=== PATIENT | female | born 1965 | race African-American/Black ===

== ENCOUNTER 2016-10-09 00:54 | Inpatient (IN) | payer OTHER ==
[~2016-10-09] VITALS: Ht 160 cm; Wt 69.4 kg
[~2016-10-09 00:54] MED LIST: AMLODIPINE BESY10 M1 PO; BACLOFEN10 M1 PO; MOBIC7.5 M1 PO; OMEPRAZOLE20 M2 PO; PATADAY2.5 ML OPH; PREMARIN0.3 M1 PO; PROPRANOLOL HCL40 M1 PO; SEROQUEL400 M1 PO; TRAMADOL HCL50 M1 PO; WELLBUTRIN XL300 M2 PO
--- NOTE | 2016-10-09 10:25 | Admission Core Measures ---
Admission Meds I reviewed the following Meds: Current Medications Sig/Jimbo Start time Last Medication Dose Stop Time Status Admin Acetaminophen 975 MG ONCE 10/09 0000 NR (Tylenol) 10/09 2358 Amlodipine Besylate 10 MG DAILY 10/09 1000 AC (Norvasc) Bupropion HCl 300 MG DAILY 10/09 1000 AC (Wellbutrin XL) Estrogens Conjugated 0.3 MG DAILY 10/09 1000 AC (Premarin) Naphazoline HCl/ 1 GTT 4 TIMES/DAY 10/09 1000 AC Pheniramine Maleate (Visine-A) Omeprazole 20 MG DAILY 10/09 1000 AC (Prilosec) Oxycodone HCl 10 MG ONCE 10/09 0000 NR (Roxicodone) 10/09 2358 Propranolol HCl 40 MG DAILY 10/09 999 AC (Inderal 40 MG Tablet) Quetiapine Fumarate 200 MG BID 10/09 2199 AC (Seroquel) Vancomycin HCl 1,000 MG ONCE 10/09 0000 NR Sodium Chloride 250 ML 10/09 2358 (Normal Saline 0.9%) Acute Coronary Syndrome Inclusion Criteria ACS Diagnosis No Inpatient Core Measures LDL Reminder: If No, please order W/I first 24hr of stay Congestive Heart Failure Inclusion Criteria CHF Diagnosis No Cerebrovascular accident Inclusion Criteria CVA/TIA Diagnosis No Inpatient Core Measures Bedside Swallow Eval Reminder: If BSE failed, place ST order Antithrombotic Reminder: Order Antithrombotic Medication by end of day 2 Antithrombotic Reminder: Document Reason Antithrombotic Not ordered by end of day 2 AFIB/Flutter Reminder: If Present, add to problem list AFIB/Flutter Reminder: Order Anticoag Medication for pts with AFIB/Flutter Atherosclerosis Reminder: If Present, add to problem list LDL Reminder: If No, please order W/I first 24hr of stay PT Order Reminder: If No, please order Venous thromboembolism Inpatient Core Measures VTE Risk Factors: Age > 40, Surgery No [facility] VTE prophylaxis d/t No contraindications No VTE Pharm Prophylaxis d/t No contraindications Inclusion Criteria - Per Current guidelines, there needs to be overlap - treatment for the first 5 days of Warfarin therapy. - Parenteral Anticoagulation (IV or SC) needs to be - given along with Warfarin therapy. VTE Diagnosis No VTE Type NONE VTE Confirmed by (Test) NONE Problem List As ranked by this Provider includes Assessment & Plan 1. Unilateral primary osteoarthritis, left hip HOME MEDS Home Med List Amlodipine Besylate 10 MG TABLET 1 TAB PO DAILY HTN (Reported) Baclofen 10 MG TABLET 1 TAB PO DAILY PAIN (Reported) Bupropion HCl (Wellbutrin XL) 300 MG TAB.ER.24H 1 TAB PO DAILY MENTAL HEALTH (Reported) Estrogens, Conjugated (Premarin) 0.3 MG TABLET 1 TAB PO DAILY POST MENOPAUSAL (Reported) Meloxicam (Mobic) 7.5 MG TABLET 1 TAB PO DAILY PAIN (Reported) Olopatadine HCl (Pataday) 0.2 % DROPS 1 GTT OPH DAILY EYES (Reported) Omeprazole 20 MG CAPSULE.DR 1 CAP PO DAILY GERD (Reported) Propranolol HCl 40 MG TABLET 1 TAB PO DAILY MENTAL HEALTH (Reported) Quetiapine Fumarate (Seroquel) 400 MG TABLET 1 TAB PO QPM MENTAL HEALTH ( Reported) Tramadol HCl 50 MG TABLET 1 TAB PO BIDP PAIN (Reported)
[2016-10-09] MEDS ORDERED: COLACE100 M1 PO (10:28)
[2016-10-09] MEDS ORDERED: MS CONTIN15 M2 PO (10:28)
[2016-10-09] MEDS ORDERED: DILAUDID2 M1 PO (10:28)
[2016-10-09] MEDS ORDERED: MIRALAX17 G1 PO (10:28)
[2016-10-09] MEDS ORDERED: ASPIRIN EC325 M2 PO (10:28)
--- NOTE | 2016-10-09 10:31 | Patient Discharge Instructions ---
Discharge Instructions General Discharge Information You were seen/treated for: Left hip pain related to unilateral primary osteoarthrtis You had these procedures: Left total hip replacement Watch for these problems: Increasing pain despite the use of pain medication Increasing redness, warmth or swelling Drainage of any type from incision Inability to bear weight on operative leg Persistent nausea and vomiting Fever greater than 101.5 degrees Do not soak the wound: Yes No bath, but you may shower: Yes Other wound care: Please keep wound clean and dry. No ointments or lotions of any type on or near incision at any time. No exceptions. Your dressing will be changed by your nurse on the second day after your surgery. Daily dry dressing changes are recommended each day thereafter. Do not soak your wound in a bath at any time until otherwise indicated by your surgeon. You may shower, please dry wound immediately after shower with a clean towel. Special Instructions: Eliquis: You are taking this medication for 3 weeks postoperatively to prevent formation of blood clots. Please take as directed. Constipation: Pain medication can cause constipation. Dr. Ramon has recommended that you take Colace and miralax each day. You may discontinue this medication if you develop loose stool or diarrhea. If you wish to continue this medication, it is available over the counter. If you are unable to move your bowels after several days, if you are unable to pass gas and are developing bloating, nausea, or vomiting as a result, please contact your doctor. Diet Continue normal diet: Yes Recommended Diet: Regular Activity Full Activity/No Limits: No Activity Self Limited: Yes Pounds, do NOT lift more than: 10 Activity Limited to: Weight bear as tolerated Acute Coronary Syndrome Inclusion Criteria At DC or during hospital stay patient has or had the following: ACS DIAGNOSIS No Discharge Core Measures Meds if any: Prescribed or Continued at Discharge Meds if any: NOT Prescribed or Continued at Discharge Congestive Heart Failure Inclusion Criteria At DC or during hospital stay patient has or had the following: CHF DIAGNOSIS No Discharge Core Measures Meds if any: Prescribed or Continued at Discharge Meds if any: NOT Prescribed or Continued at Discharge Cerebrovascular accident Inclusion Criteria At DC or during hospital stay patient has or had the following: CVA/TIA Diagnosis No Discharge Core Measures Meds if any: Prescribed or Continued at Discharge Meds if any: NOT Prescribed or Continued at Discharge Venous thromboembolism Inclusion Criteria VTE Diagnosis No VTE Type NONE VTE Confirmed by (Test) NONE Discharge Core Measures - Per Current guidelines, there needs to be overlap - treatment for the first 5 days of Warfarin therapy. - If discharged on Warfarin prior to 5 days of - overlap therapy, the patient will need to be - assessed for post discharge needs including - *Post discharge parental anticoagulation - *Warfarin and/or parental anticoagulation education - *Follow up date to check INR post discharge At least 5 days overlap therapy as Inpatient No Meds if any: Prescribed or Continued at Discharge Note: Overlap Therapy is Warfarin and Anticoagulant Meds if any: NOT Prescribed or Continued at Discharge
--- NOTE | 2016-10-09 10:33 | Surgical Discharge Summary ---
Visit Information Visit Dates Admission Date: 10/09/16 Discharge Date: 10/11/16 History of Present Illness Chief Complaint: Left hip pain related to unilateral primary osteoarthritis Surgical History Pertinent Surgical History: non-contributory Review of Systems: See H&P Hospital Course Course Attending Physician: KAMARI HILARIO MD Primary Care Physician: AMANDA UBRCH,[facility] Course: Patient was admitted to the hospital for an elective total joint replacement. The procedure was tolerated well and patient was transferred to a general surgical floor. Diet was advanced and tolerated, and the patient voided spontaneously. The patient was evaluated and treated by physical therapy. At the time of hospital discharge, the vital signs were stable, neurovascular status was intact, and pain was controlled with the use of oral pain medications. Allergies: Coded Allergies: Penicillins (Severe, SWELLING 10/09/16) ibuprofen (Severe, SWELLING 10/09/16) Disposition Summary Disposition Principal Diagnosis: Left hip unilateral primary osteoarthritis Additional Diagnosis: None Discharge Disposition: home health services Discharge Instructions General Discharge Information Code Status: Full Code Patient's Diet: Regular, advance as tolerated Patient's Activity: WBAT Follow-Up Instructions/Appts: Follow up with Dr. Hilario in 6 weeks from date of surgery. Please call his office to arrange and/or confirm this appointment. Medications at Discharge Discharge Medications: Stop taking the following medications: Meloxicam (Mobic) 7.5 MG TABLET ORAL DAILY Baclofen (Baclofen) 10 MG TABLET ORAL DAILY Tramadol HCl (Tramadol HCl) 50 MG TABLET ORAL 2 x Daily as needed Continue taking these medications: Estrogens, Conjugated (Premarin) 0.3 MG TABLET 1 Tablet ORAL DAILY Comments: LAST GIVEN 10/10/16 @ 1003 Amlodipine Besylate (Amlodipine Besylate) 10 MG TABLET 1 Tablet ORAL DAILY Comments: LAST GIVEN 10/10/16 @ 1003 Omeprazole (Omeprazole) 20 MG CAPSULE.DR 1 Capsule ORAL DAILY Comments: LAST GIVEN 10/10/16 @ 1003 Bupropion HCl (Wellbutrin XL) 300 MG TAB.ER.24H 1 Tablet ORAL DAILY Comments: LAST GIVEN 10/10/16 @ 1002 Quetiapine Fumarate (Seroquel) 400 MG TABLET 1 Tablet ORAL Every night Comments: LAST GIVEN 10/10/16 @ 2137 Olopatadine HCl (Pataday) 0.2 % DROPS 1 Drop In the eye DAILY Start taking the following new medications: Apixaban (Eliquis) 2.5 MG TABLET 2.5 Milligram ORAL TWICE DAILY Days = 21 No Refills Comments: LAST GIVEN 10/10/16 @ 2136 Docusate Sodium (Colace) 100 MG CAPSULE 1 Capsule ORAL TWICE DAILY Qty = 14 No Refills Instructions: DISCONTINUE USE IF YOU DEVELOP LOOSE STOOL OR DIARRHEA Comments: LAST GIVEN 10/10/16 @ 2136 Polyethylene Glycol 3350 (Miralax) 17 GRAM POWD.PACK 1 Packet ORAL DAILY Qty = 7 No Refills Instructions: dissolve in water, DISCONTINUE USE IF YOU DEVELOP LOOSE STOOL OR DIARRHEA Comments: LAST GIVEN 10/10/16 @ 1003 Hydromorphone HCl (Dilaudid) 2 MG TABLET 1-2 Tablet ORAL EVERY 4-6 HOURS NEEDED as needed for PAIN Qty = 36 No Refills Comments: LAST GIVEN 10/11/16 @ 0800 Morphine Sulfate (Ms Contin) 15 MG TABLET.ER 1 Tablet ORAL TWICE DAILY Qty = 6 No Refills Comments: LAST GIVEN 10/10/16 @ 2136 The following medications have been changed: Old: Propranolol HCl (Propranolol HCl) 40 MG TABLET 1 Tablet ORAL DAILY New: Propranolol HCl (Propranolol HCl) 40 MG TABLET 1 Tablet ORAL DAILY Qty = 30 Comments: LAST GIVEN 10/10/16 @ 1000
--- NOTE | 2016-10-09 11:24 | RADIOLOGY REPORT ---
EXAMINATION: XR HIP, LEFT CLINICAL INFORMATION: Status post total left hip replacement. COMPARISON: None TECHNIQUE: Two views of the left hip. FINDINGS: There is a total left hip arthroplasty. The femoral head component articulates appropriately with the acetabular component. No periprosthetic lucency or fracture. Postoperative soft tissue gas is noted. The visualized left hemipelvis is intact. IMPRESSION: Normal postoperative appearance of the left total hip prosthesis.
[2016-10-09 13:03] VITALS: BP 146/94
--- NOTE | 2016-10-09 13:48 | PN- Orthopedic ---
Subjective Subjective: POST-OP NOTE: Reports some left hip discomfort, worse with ambulating to the bathroom "10/24". She has voided twice post-op, but reports "uterus pain". She denies dysuria. No dizziness. No shortness of breath. No chest pains. Her goal is to go home tomorrow. Objective Vital Signs and I&Os Vital Signs Date Time Temp Pulse Resp B/P B/P Pulse O2 O2 Flow FiO2 Mean Ox Delivery Rate 10/09 1303 97.6 85 18 146/94 99 Room Air Intake & Output 10/09 1600 10/09 0800 10/09 0000 10/08 1600 10/08 0800 10/08 0000 Intake Total Output Total 300 Balance -300 Output, Urine 300 Patient 153 lb Weight Physical Exam: General - alert & oriented x 3. out of bed to chair. no acute distress. Lungs - clear bilaterally. no w/r/r. Cardiac - s1s2. reg. Abdomen - soft. nontender. Extremities - warm bilaterally. no c/c/e. left hip dressing c/d/i. no drains. no hematoma. nvi. calves soft and nontender b/l. Current Medications: Current Medications Sig/Jimbo Start time Last Medication Dose Route Stop Time Status Admin Acetaminophen 1,000 MG Q6 10/09 1200 AC IV 10/10 0601 Acetaminophen 0 .STK-MED ONE 10/09 0752 DC PO Acetaminophen 975 MG ONCE 10/09 0000 DC PO 10/09 2359 Amlodipine Besylate 10 MG DAILY 10/10 1000 AC PO Amlodipine Besylate 10 MG DAILY 10/09 1000 DC PO Aspirin 325 MG BID 10/09 220 UNVr PO Bupropion HCl 300 MG DAILY 10/10 1000 AC PO Bupropion HCl 300 MG DAILY 10/09 1000 DC PO Dextrose/Sodium 1,000 ML .[id number] 10/09 1300 AC 10/09 Chloride IV 1344 Docusate Sodium 100 MG BID 10/09 2200 AC PO Estrogens Conjugated 0.3 MG DAILY 10/10 1000 AC PO Estrogens Conjugated 0.3 MG DAILY 10/09 1000 DC PO Hydromorphone HCl 2 MG Q4P PRN 10/09 1300 AC PO Hydromorphone HCl 4 MG Q4P PRN 10/09 1300 AC PO Morphine Sulfate 2 MG Q2P PRN 10/09 1300 AC IV Naphazoline HCl/ 1 GTT 4 TIMES/DAY 10/09 1400 AC Pheniramine Maleate OPH Naphazoline HCl/ 1 GTT 4 TIMES/DAY 10/09 1000 DC Pheniramine Maleate OPH Omeprazole 20 MG DAILY 10/10 1000 AC PO Omeprazole 40 MG DAILY AC 10/10 0700 UNVr PO Omeprazole 20 MG DAILY 10/09 1000 DC PO Ondansetron HCl 4 MG Q6P PRN 10/09 1300 AC IV Oxycodone HCl 0 .STK-MED ONE 10/09 0753 DC PO Oxycodone HCl 10 MG ONCE 10/09 0000 DC PO 10/09 2359 Polyethylene Glycol 17 GM DAILY 10/10 1000 AC PO Promethazine HCl 12.5 MG Q6P PRN 10/09 1300 AC IV 10/16 1029 Propranolol HCl 40 MG DAILY 10/10 1000 UNVr PO Propranolol HCl 40 MG DAILY 10/09 1000 DC PO Quetiapine Fumarate 200 MG BID 10/09 2200 DC PO Quetiapine Fumarate 200 MG BID 10/09 2200 AC PO Vancomycin HCl 1,000 MG Q12 10/09 2200 AC Sodium Chloride 250 ML IV 10/09 2259 Vancomycin HCl 1,000 MG ONCE 10/09 0000 DC Sodium Chloride 250 ML IV 10/09 2359 Assessment/Plan Assessment/Plan This 51 year old with hx htn, gerd, depression, pain, is POD#0 s/p left total hip replacement for unilateral primary osteoarthritis advance diet as tolerated pain control as ordered PT eval monica-operative vanco x 1 asa bid - dvt ppx home meds ordered f/u am labs d/c planning for home tomorrow will d/w Core Measures/Miscellaneous Venous Thromboembolism VTE Risk Factors: Age > 40, Surgery VTE Contraindications: No Contraindications VTE Diagnosis: No VTE Type: NONE VTE Confirmed by (Test): NONE Beta Yany Is Beta Yany a Home Med? Yes If Yes, Was This Ordered Today? Yes Antibiotics Is Patient on Antibiotics? Yes If Yes: prophylaxis
[2016-10-09] MEDS ORDERED: PROPRANOLOL HCL40 M1 PO (15:05)
[2016-10-09 15:07] VITALS: BP 130/82
[2016-10-09 17:00] VITALS: BP 134/80
--- NOTE | 2016-10-09 17:37 | Operative Report ---
Operative/Inv Procedure Report Surgery Date: 10/09/16 Name of Procedure: Left total hip replacement Pre-Operative Diagnosis: Primary left hip DJD Post-Operative Diagnosis: Same Estimated Blood Loss: 250 Surgeon/Optical Systems Engineer: KAMARI HILARIO MD Anesthesia: block Operative/Procedure Note Note: Description of Procedure: The patient was taken to the operating room and positively identified. After induction of spinal anesthesia and administration of appropriate pre-operative antibiotics, the patient was positioned supine on the operating room table and all bony prominences were well padded. After performing a surgical timeout, the left lower extremity was prepped and draped in the usual sterile fashion. A direct anterior approach was made to the left hip. The incision was carried sharply through superficial soft tissues to the level of the fascia. Meticulous hemostasis was maintained with Bovie electocautery. The fascia over the tensor fascia becky muscle was opened sharply and the interval between the TFL and the sartorius was entered bluntly taking care to stay lateral to the lateral femoral cutaneous nerve. Retractors were placed around the femoral neck and the pericapsular fat was identified. The ascending branches of the lateral femoral circumflex vessels were identified and carefully coagulated. The pericapsular fat and anterior capsule were then resected. A napkin ring osteotomy was performed and the femoral head was removed without difficulty. Attention was then turned to the acetabulum. After appropriate placement of retractors, the acetabulum was exposed. Soft tissue was cleaned from the acetabular margin and notch. Overhanging osteophytes were removed and the teardrop was exposed. The acetabulum was then sequentially reamed to accept a 50 mm Damascus Tritanium hemispherical solid back shell. This was impacted into place in the appropriate position and fitted with a 32 mm Trident X3 zero degree polyethylene insert. Attention was then turned to the femur. After performing the appropriate ligament releases, the proximal femur was exposed. It was then sequentially broached to accept a size 2 Damascus Anato stem. This was trialed for leg length and stability. The trial component was removed and the final component was impacted into place. The trunnion was carefully cleaned and fit with a 32 mm, + 0 Biolox delta ceramic femoral head. The hip was reduced and put through a full range of motion and found to be stable. The articular space was then irrigated with sterile saline. The periarticular soft tissues were infilitrated with Marcaine. The fascial layer was closed with interrupted #1 vicryl suture and the skin was re-approximated with interrupted 2 -0 vicryl. The skin was closed with a running 3-0 V-Lock suture. Steri-strips and a sterile dressing were applied. The patient was awakened and taken to the recovery room in satisfactory condition.
[2016-10-09 19:00] VITALS: BP 140/100
--- NOTE | 2016-10-09 21:14 | Event Note ---
Event Note Event Note: Called by RN. Went to see pt at bedside. Pt refusing ASA. "I am allergic". Unable to tell me her allergic reaction symptoms. "i will not take it". Explained reasoning for ASA in postop total joint replacement setting for DVT ppx, inclusing risk of DVT and PE, and risk of . "I would rather from a blood clot than take aspirin". MAICOL Ramon- will DC aspirin and order eliquis 2.5mg BID [id number] instead.
[2016-10-09] MEDS ORDERED: ELIQUIS2.5 M1 PO (21:15)
[2016-10-09 22:37] VITALS: BP 122/70
[2016-10-10 02:39] VITALS: BP 118/62
[2016-10-10 04:44] VITALS: BP 120/70
[2016-10-10 07:07] VITALS: BP 120/80
--- NOTE | 2016-10-10 07:55 | PN- Orthopedic ---
Subjective Subjective: Patient c/o pain presently. Last dose of dilaudid was approximately 8 hours ago , had one dose of iv offirmev overnight. States pain is only in surgical site. Denies chest pain, shortness of breath and difficulty breathing. Acknowledges intermittent nausea but denies vomitting. Has been voiding without difficulty. Has not been ambulating. Objective Vital Signs and I&Os Vital Signs Date Time Temp Pulse Resp B/P B/P Pulse O2 O2 Flow FiO2 Mean Ox Delivery Rate 10/10 0707 98.4 85 20 120/80 98 10/10 0444 98.7 89 18 120/70 95 10/10 0239 98.2 89 20 118/62 96 10/09 2237 98.6 80 18 122/70 96 Room Air 10/09 1900 98.6 93 18 140/100 98 Room Air 10/09 1700 98.1 80 18 134/80 98 Room Air 10/09 1627 Room Air 10/09 1507 98.6 83 18 130/82 98 Room Air 10/09 1303 97.6 85 18 146/94 99 Room Air Intake & Output 10/10 0800 10/10 0000 10/09 1600 10/09 0800 10/09 0000 10/08 1600 Intake Total 1050 Output Total 900 800 950 Balance -900 250 -950 Intake, IV 450 Intake, Oral 600 Output, Urine 900 800 950 Patient 153 lb Weight Physical Exam: General: Alert and oriented x3, no acute distress Cardiac: RRR, s1s2 Pulm: CTA bilaterally Abdomen: Non-distended Extremiteis: Bilateral NVI, calves soft and non-tender bilaterally Surgical site: Left hip: Dressing dry and intact, monica-incisional tenderness noted, thigh compartment soft Assessment/Plan Assessment/Plan This is a 51 year old female, POD 2, s/p L thr, having pain -Add MS Contin 15 po bid to current regimen -Give po dilaudid now, iv morphine for breakthrough -OOB with PT, discharge later today if pain under control with po meds -DIet as tolerated -Eliquis for dvt ppx, changed because of reported allergy to asa -F/U am labs -Will d/w Dr. Ramon Core Measures/Miscellaneous Venous Thromboembolism VTE Risk Factors: Age > 40, Surgery VTE Contraindications: No Contraindications VTE Diagnosis: No VTE Type: NONE VTE Confirmed by (Test): NONE Beta Yany Is Beta Yany a Home Med? Yes If Yes, Was This Ordered Today? Yes Antibiotics Is Patient on Antibiotics? Yes If Yes: prophylaxis
[2016-10-10 09:28] LABS: ABSOLUTE BASOPHIL COUNT 0 /CUMM (0.0-0.2); ABSOLUTE EOSINOPHIL COUNT 0.1 /CUMM (0.0-0.7); ABSOLUTE GRANULOCYTE CT 3.3 /CUMM (1.4-6.5); ABSOLUTE LYMPH COUNT 3.1 /CUMM (1.2-3.4); ABSOLUTE MONOCYTE COUNT 0.4 /CUMM (0.10-0.60); BASOPHIL % 0.2 % (0.0-2.0); EOSINOPHIL % 0.8 % (0-5); GRANULOCYTE % 47.5 % (42.2-75.2); HEMATOCRIT 31.1 % (37-47); MEAN CORPUSCULAR HGB 30.8 PG (27.0-31.0); MEAN CORPUSCULAR HGB CONC 32.2 G/DL (33.0-37.0); MEAN CORPUSCULAR VOLUME 95.7 FL (81.0-99.0); MEAN PLATELET VOLUME 7.9 FL (7.4-10.4); PLATELET COUNT 199 /CUMM (130-400); RED BLOOD CELL CT 3.25 /CUMM (4.20-5.40); WHITE BLOOD CELL COUNT 6.9 /CUMM (4.8-10.8)
--- NOTE | 2016-10-10 13:00 | NUR ---
LATE ENTRY: PT'S POTASSIUM ORDERS NOTED TO BE SCHEDULED BID. PT'S LAST K LEVEL 3.3. SURGICAL PA BORA CONTACTED TO VERIFY ABOVE ORDERS. PER PA, TO KEEP ORDERS THE SAME, REASSESSMENT OF LYTES IN AM. WILL CONT TO MONITOR.
[2016-10-10 14:49] VITALS: BP 116/70
--- NOTE | 2016-10-10 16:36 | NUR ---
PT HAS BEEN TOLERATING PO FOOD AND FLUIDS WELL WITH NO ISSUES TODAY. SURGICAL PA BORA CONTACTED. SNO FOR D/C OF IV FLUIDS. EVENING RN RESUMING CARE FOR PT AT THIS TIME. SAFETY MAINTAINED.
[2016-10-10 22:20] VITALS: BP 136/64
[2016-10-11 06:37] VITALS: BP 120/72
--- NOTE | 2016-10-11 07:41 | PN- Orthopedic ---
Subjective Subjective: No acute overnight events reported. Patient states that pain is better controlled. Denies chest pain, shortness of breath and difficulty breathing. Denies nausea and vomitting. Has been voiding. Has been OOB and ambulating. Objective Vital Signs and I&Os Vital Signs Date Time Temp Pulse Resp B/P B/P Pulse O2 O2 Flow FiO2 Mean Ox Delivery Rate 10/11 0637 99.5 95 20 120/72 94 10/10 2345 93 10/10 2220 99.8 105 18 136/64 92 10/10 2136 105 136/64 10/10 1449 99.5 85 20 116/70 96 Room Air 10/10 1003 91 132/70 10/10 1002 91 132/70 Intake & Output 10/11 0800 10/11 0000 10/10 1600 10/10 0810/10 0000 10/09 1600 Intake Total 500 666 460 6870 Output Total 004 774 8428 900 800 950 Balance -300 0 -780 -200 250 -950 Intake, IV 100 600 450 Intake, Oral 500 240 100 600 Number 0 Bowel Movements Output, Urine 087 528 3807 900 800 950 Patient 153 lb Weight Physical Exam: General: Alert and oriented x3, no acute distress Cardiac: RRR, s1s2 Pulm: CTA bilaterally ABD: Non-tender, non-distended Extremties: Moves all extremities, distal sensation intact, skin warm and well perfused, dp pulses palpable, bialteral calves soft and non-tender Surgical site: Dressing clean dry and intact, thigh compartment soft. Assessment/Plan Assessment/Plan This is a 51 year old female, POD 2, s/p L THR -DC to home today -Continue MS Contin 15 bid with po dilaudid for pain control -Eliquis 2.5 bid for dvt ppx -Bowel regimen to continue -Home health services to include nursing and pt -Will d/w Dr. Ramon Core Measures/Miscellaneous Venous Thromboembolism VTE Risk Factors: Age > 40, Surgery VTE Contraindications: No Contraindications VTE Diagnosis: No VTE Type: NONE VTE Confirmed by (Test): NONE Beta Yany Is Beta Yany a Home Med? Yes If Yes, Was This Ordered Today? Yes Antibiotics Is Patient on Antibiotics? Yes If Yes: prophylaxis
== END 2016-10-11 09:05 | disposition home health service (06) | DRG 470 ==
LOC: SDA 00:54 → ENRESERV 11:57 → ENTRNSPT 12:10 → EDTRNSPTSTS 12:26 → EDTRNSPT 12:26 → 2NB 12:34 → EDTRNSPT 12:53 → CMPTRNSPT 12:55 → ENPENDDIS 10-11 07:44 → 2NB 10-11 09:05
PROVIDERS: Nurse Practitioner; ADMIT Orthopaedic Surgery
PROC: 0SRB04A Replacement of Left Hip Joint with Ceramic on Polyethylene Synthetic Substitute, Uncemented, Open Approach (ICD-10-PCS; principal; 2016-10-09)
DX: M16.12 Unilateral primary osteoarthritis, left hip (principal); I10 Essential (primary) hypertension; M25.752 Osteophyte, left hip; K21.9 Gastro-esophageal reflux disease without esophagitis; F32.9 Major depressive disorder, single episode, unspecified; F17.210 Nicotine dependence, cigarettes, uncomplicated
CPT/HCPCS: 2NBSP; 36415; 73502-LT; 82436; 88304; 97110-GO; 97116-GO; 97161-GP; 97530-GO; J0131; J0735; J2405; J2550; J3370; J7040; J7042

== ENCOUNTER 2017-08-18 00:28 | Inpatient (IN) | payer OTHER ==
[~2017-08-18] VITALS: Ht 160 cm; Wt 61.9 kg
[~2017-08-18 00:28] MED LIST changes: +ASPIRIN EC325 M2 PO; +COLACE100 M1 PO; +DILAUDID2 M1 PO; +ELIQUIS2.5 M1 PO; +MIRALAX17 G1 PO; +MS CONTIN15 M2 PO
--- NOTE | 2017-08-18 10:20 | RADIOLOGY REPORT ---
EXAMINATION: XR HIP, RIGHT CLINICAL INFORMATION: Right hip arthroplasty COMPARISON: None TECHNIQUE: Two views of the right hip. FINDINGS: Status post right hip arthroplasty. Prosthesis in place. No periprosthetic abnormal lucency. Lucency noted in the soft tissues surrounding the right hip and in the right thigh region compatible with recent postoperative changes. IMPRESSION: Status post right hip arthroplasty. Recent postoperative changes.
--- NOTE | 2017-08-18 10:47 | Admission Core Measures ---
Acute Coronary Syndrome (CM) ACS Core Measures Acute Coronary Syndrome Diagnosis No Congestive Heart Failure (NEW) CHF Core Measures Congestive Heart Failure Diagnosis No Cerebrovascular Accident (NEW) CVA Core Measures CVA/TIA Diagnosis No Venous Thromboembolism VTE Core Laura (View Protocol) VTE Risk Factors Surgery No Mechanical VTE Prophylaxis d/t N/A MechProphylax Ordered No VTE Pharm Prophylaxis d/t NA PharmProphylax ordered Problem List As ranked by this Provider includes Assessment & Plan 1. Unilateral primary osteoarthritis, right hip HOME MEDS Home Med List Amlodipine Besylate 10 MG TABLET 1 TAB PO DAILY HTN (Reported) Bupropion HCl (Wellbutrin XL) 300 MG TAB.ER.24H 1 TAB PO DAILY MENTAL HEALTH (Reported) Docusate Sodium (Colace) 100 MG CAPSULE 1 CAP PO BID CONSITPATION Estrogens, Conjugated (Premarin) 0.3 MG TABLET 1 TAB PO DAILY POST MENOPAUSAL (Reported) Hydromorphone HCl (Dilaudid) 2 MG TABLET 1-2 TAB PO Q4-6 PRN PRN PAIN Ms Contin 15 MG TABLET.ER 1 TAB PO BID PAIN Olopatadine HCl (Pataday) 0.2 % DROPS 1 GTT OPH DAILY EYES (Reported) Omeprazole 20 MG CAPSULE.DR 1 CAP PO DAILY GERD (Reported) Propranolol HCl 40 MG TABLET 1 TAB PO DAILY htn Quetiapine Fumarate (Seroquel) 400 MG TABLET 1 TAB PO QPM MENTAL HEALTH ( Reported)
[2017-08-18] MEDS ORDERED: DILAUDID2 M1 PO (10:51)
[2017-08-18] MEDS ORDERED: MIRALAX17 G1 PO (10:51)
[2017-08-18] MEDS ORDERED: ELIQUIS2.5 M1 PO (10:51)
[2017-08-18] MEDS ORDERED: COLACE100 M1 PO (10:51)
--- NOTE | 2017-08-18 10:55 | Patient Discharge Instructions ---
Discharge Instructions General Discharge Information You were seen/treated for: Right hip pain related to unilateral primary osteoarthritis You had these procedures: Right total hip replacement Watch for these problems: Increasing pain despite the use of pain medication Increasing redness, warmth or swelling Drainage of any type from incision Inability to bear weight on operative leg Persistent nausea and vomiting Fever greater than 101.5 degrees Do not soak the wound: Yes No bath, but you may shower: Yes Other wound care: Please keep wound clean and dry. No ointments or lotions of any type on or near incision at any time. No exceptions. Your dressing will be changed by your nurse on the second day after your surgery. Daily dry dressing changes are recommended each day thereafter. Do not soak your wound in a bath at any time until otherwise indicated by your surgeon. You may shower, please dry wound immediately after shower with a clean towel. Special Instructions: Aspirin: You are taking this medication to help prevent blood clot formation. Please take with food to protect your stomach lining. Please take as directed. Constipation: Pain medication can cause constipation. Dr. Ramon has recommended that you take Colace and miralax each day. You may discontinue this medication if you develop loose stool or diarrhea. If you wish to continue this medication, it is available over the counter. If you are unable to move your bowels after several days, if you are unable to pass gas and are developing bloating, nausea, or vomiting as a result, please contact your doctor. Diet Continue normal diet: Yes Recommended Diet: Regular Activity Full Activity/No Limits: No Activity Self Limited: Yes Pounds, do NOT lift more than: 10 Acute Coronary Syndrome Inclusion Criteria At DC or during hospital stay patient has or had the following: ACS DIAGNOSIS No Discharge Core Measures Meds if any: Prescribed or Continued at Discharge Meds if any: NOT Prescribed or Continued at Discharge Congestive Heart Failure Inclusion Criteria At DC or during hospital stay patient has or had the following: CHF DIAGNOSIS No Discharge Core Measures Meds if any: Prescribed or Continued at Discharge Meds if any: NOT Prescribed or Continued at Discharge Cerebrovascular accident Inclusion Criteria At DC or during hospital stay patient has or had the following: CVA/TIA Diagnosis No Discharge Core Measures Meds if any: Prescribed or Continued at Discharge Meds if any: NOT Prescribed or Continued at Discharge Venous thromboembolism Inclusion Criteria VTE Diagnosis No VTE Type NONE VTE Confirmed by (Test) NONE Discharge Core Measures - Per Current guidelines, there needs to be overlap - treatment for the first 5 days of Warfarin therapy. - If discharged on Warfarin prior to 5 days of - overlap therapy, the patient will need to be - assessed for post discharge needs including - *Post discharge parental anticoagulation - *Warfarin and/or parental anticoagulation education - *Follow up date to check INR post discharge At least 5 days overlap therapy as Inpatient No Meds if any: Prescribed or Continued at Discharge Note: Overlap Therapy is Warfarin and Anticoagulant Meds if any: NOT Prescribed or Continued at Discharge
--- NOTE | 2017-08-18 10:57 | Surgical Discharge Summary ---
Visit Information Visit Dates Admission Date: 08/18/17 Discharge Date: 08/19/17 History of Present Illness Chief Complaint: Right hip pain related to unilateral primary osteoarthritis Medical History Cardiovascular: hypertension Gastrointestinal: GERD Musculoskeletal: osteoarthritis History of MRSA: No History of VRE: No History of CDIFF: No Surgical History Pertinent Surgical History: non-contributory Psychosocial History Who Do You Live With? Patient/Self What is Your Primary Language? [place]araguan Review of Systems: See H&P Hospital Course Course Attending Physician: Georgi Ramon MD Primary Care Physician: Adi BURCH,[facility] Course: Patient was admitted to the hospital for an elective total joint replacement. The procedure was tolerated well and patient was transferred to a general surgical floor. Diet was advanced and tolerated. The patient was evaluated and treated by physical therapy. At the time of hospital discharge, the vital signs were stable, neurovascular status was intact, and pain was controlled with the use of oral pain medications. Allergies: Coded Allergies: Penicillins (Severe, SWELLING 08/14/17) ibuprofen (Severe, SWELLING 08/14/17) lisinopril ("DYING SICK" 08/14/17) Disposition Summary Disposition Principal Diagnosis: Right hip unilateral primary osteoarthritis Additional Diagnosis: None Discharge Disposition: home health services Discharge Instructions General Discharge Information Code Status: Full Code Patient's Diet: Regular, advance as tolerated Patient's Activity: WBAT Follow-Up Instructions/Appts: Follow up with Dr. Ramon in 6 weeks from date of surgery. Please call office to arrange &/or confirm this appointment. Medications at Discharge Discharge Medications: Stop taking the following medications: Docusate Sodium (Colace) 100 MG CAPSULE ORAL TWICE DAILY Qty = 14 Hydromorphone HCl (Dilaudid) 2 MG TABLET ORAL EVERY 4-6 HOURS NEEDED as needed for PAIN Qty = 36 Ms Contin (Ms Contin) 15 MG TABLET.ER ORAL TWICE DAILY Qty = 6 Continue taking these medications: Estrogens, Conjugated (Premarin) 0.3 MG TABLET 1 Tablet ORAL DAILY Amlodipine Besylate (Amlodipine Besylate) 10 MG TABLET 1 Tablet ORAL DAILY Omeprazole (Omeprazole) 20 MG CAPSULE.DR 1 Capsule ORAL DAILY Comments: LAST GIVEN 10/10/16 @ 1003 Bupropion HCl (Wellbutrin XL) 300 MG TAB.ER.24H 1 Tablet ORAL DAILY Comments: NOT GIVEN Quetiapine Fumarate (Seroquel) 400 MG TABLET 1 Tablet ORAL Every night Comments: LAST GIVEN 10/10/16 @ 2137 Olopatadine HCl (Pataday) 0.2 % DROPS 1 Drop In the eye DAILY Propranolol HCl (Propranolol HCl) 40 MG TABLET 1 Tablet ORAL DAILY Qty = 30 Comments: LAST GIVEN 10/10/16 @ 1003 Start taking the following new medications: Apixaban (Eliquis) 2.5 MG TABLET 1 Tablet ORAL TWICE DAILY Qty = 42 No Refills Docusate Sodium (Colace) 100 MG CAPSULE 1 Capsule ORAL TWICE DAILY Qty = 14 No Refills Instructions: DISCONTINUE USE IF YOU DEVELOP LOOSE STOOL OR DIARRHEA Polyethylene Glycol 3350 (Miralax) 17 GRAM POWD.PACK 1 Packet ORAL DAILY Qty = 7 No Refills Instructions: dissolve in water, DISCONTINUE USE IF YOU DEVELOP LOOSE STOOL OR DIARRHEA Hydromorphone HCl (Dilaudid) 2 MG TABLET 1-2 Tablet ORAL EVERY 4-6 HOURS NEEDED as needed for PAIN Qty = 36 No Refills
[2017-08-18 11:00] VITALS: BP 108/68
--- NOTE | 2017-08-18 12:04 | PN- Orthopedic ---
Subjective Subjective: POC S/P RIGHT CHELE NO COMPLAINTS AT THIS TIME DENIES CP, SOB, NO N+V Objective Vital Signs and I&Os Vital Signs Date Time Temp Pulse Resp B/P B/P Pulse O2 O2 Flow FiO2 Mean Ox Delivery Rate 08/18 1100 97.0 65 18 108/68 95 Room Air Physical Exam: CV: RRR LUNGS: CLEAR ABD: SOFT, +BS EXT: RIGTH THIGH SOFT DRSG DRY DISTAL CMS INTACT BILAT Assessment/Plan Assessment/Plan ORTHO STABLE POST OP XRAYS IN GOOD POSITION PLAN ELIQUIS BID FOR DVT PROPHYLAXIS OOB WITH PT LIKELY WILL STAY 1-2 DAYS CONT HOME MEDS ADVANCE DIET Core Measures Venous Thromboembolism VTE Risk Factors Surgery No Mechanical VTE Prophylaxis d/t N/A MechProphylax Ordered No VTE Pharm Prophylaxis d/t NA PharmProphylax ordered
[2017-08-18 13:38] VITALS: BP 130/80
[2017-08-18 13:42] VITALS: BP 130/80
--- NOTE | 2017-08-18 13:55 | Operative Report ---
Operative/Inv Procedure Report Surgery Date: 08/18/17 Name of Procedure: Right total hip replacement Pre-Operative Diagnosis: Primary right hip DJD Post-Operative Diagnosis: Same Estimated Blood Loss: 250 Surgeon/Motion Graphics Artist: Yenny BURCH,Georgi De La Garza Anesthesia: block Operative/Procedure Note Note: Description of Procedure: The patient was taken to the operating room and positively identified. After induction of spinal anesthesia and administration of appropriate pre-operative antibiotics, the patient was positioned supine on the operating room table and all bony prominences were well padded. After performing a surgical timeout, the right lower extremity was prepped and draped in the usual sterile fashion. A direct anterior approach was made to the right hip. The incision was carried sharply through superficial soft tissues to the level of the fascia. Meticulous hemostasis was maintained with Bovie electocautery. The fascia over the tensor fascia becky muscle was opened sharply and the interval between the TFL and the sartorius was entered bluntly taking care to stay lateral to the lateral femoral cutaneous nerve. Retractors were placed around the femoral neck and the pericapsular fat was identified. The ascending branches of the lateral femoral circumflex vessels were identified and carefully coagulated. The pericapsular fat and anterior capsule were then resected. A napkin ring osteotomy was performed and the femoral head was removed without difficulty. Attention was then turned to the acetabulum. After appropriate placement of retractors, the acetabulum was exposed. Soft tissue was cleaned from the acetabular margin and notch. Overhanging osteophytes were removed and the teardrop was exposed. The acetabulum was then sequentially reamed to accept a 50 mm Skinny Tritanium hemispherical solid shell. This was impacted into place in the appropriate position and fitted with a 32 mm Trident X3 zero degree polyethylene insert. Attention was then turned to the femur. After performing the appropriate ligament releases, the proximal femur was exposed. It was then sequentially broached to accept a size #2 [place] Anato stem. This was trialed for leg length and stability. The trial component was removed and the final component was impacted into place. The trunnion was carefully cleaned and fit with a 32 mm, +0 Biolox delta ceramic femoral head. The hip was reduced and put through a full range of motion and found to be stable. The articular space was then irrigated with sterile saline. The periarticular soft tissues were infilitrated with Marcaine. The fascial layer was closed with interrupted #1 vicryl suture and the skin was re-approximated with interrupted 2 -0 vicryl. The skin was closed with a running 3-0 V-Lock suture. Steri-strips and a sterile dressing were applied. The patient was awakened and taken to the recovery room in satisfactory condition.
[2017-08-18 16:00] VITALS: BP 128/82
[2017-08-18 22:26] VITALS: BP 120/80
[2017-08-19 02:20] VITALS: BP 114/70
[2017-08-19 05:58] VITALS: BP 128/71
--- NOTE | 2017-08-19 07:56 | PN- Orthopedic ---
Subjective Subjective: No acute overnight events. Pt states she was unable to sleep and wishes to go home today. Denies chest pain, shortness of breath and difficulty breathing. Denies nausea and vomitting. Has been oob. Has voided. Will work with PT today on stairs. Objective Vital Signs and I&Os Vital Signs Date Time Temp Pulse Resp B/P B/P Pulse O2 O2 Flow FiO2 Mean Ox Delivery Rate 08/19 0558 98.2 77 20 128/71 99 Room Air 06/05 0220 98.3 77 20 114/70 98 Room Air 06/04 2226 97.9 82 18 120/80 99 Room Air 06/04 1600 98.0 82 16 128/82 99 Room Air 06/04 1342 97.4 83 20 130/80 98 06/04 1338 83 20 130/80 98 06/04 1100 97.0 65 18 108/68 95 Room Air Intake & Output 06/05 0800 06/05 0000 06/04 1600 06/04 0800 06/04 0000 06/03 1600 Intake Total 425 1075 Output Total 1000 2200 1300 Balance -1000 -1775 -225 Intake, IV 225 325 Intake, Oral 200 750 Output, Urine 1000 2200 1300 Patient 140 lb Weight Weight Bed scale Measurement Method Physical Exam: General: AAO x3, no acute distress Cardiac: RRR, s1s2 Pulm: Non-labored respiratory effort, cta Abd: Non-tender, non-distended Ext: Moves all extremities, neurovascular status grossly intact. Skin warm and well perfused. Bilateral calves soft and non-tender Surgical site: Right hip. Dressing intact. Thigh compartment soft Assessment/Plan Assessment/Plan 51 year old female, POD 1, s/p R THR -DC iv fluds -Eliquis to start this am for dvt ppx -OOB, wbat -Diet as toelrated -PO pain med only -PT/stairs -DC to home with hhs pending pt clearance Core Measures Venous Thromboembolism VTE Risk Factors Surgery No Mechanical VTE Prophylaxis d/t N/A MechProphylax Ordered No VTE Pharm Prophylaxis d/t NA PharmProphylax ordered
[2017-08-19 08:29] LABS: ABSOLUTE BASOPHIL COUNT 0 /CUMM (0.0-0.2); ABSOLUTE EOSINOPHIL COUNT 0 /CUMM (0.0-0.7); ABSOLUTE GRANULOCYTE CT 3.9 /CUMM (1.4-6.5); ABSOLUTE LYMPH COUNT 4.1 /CUMM (1.2-3.4); ABSOLUTE MONOCYTE COUNT 0.6 /CUMM (0.10-0.60); BASOPHIL % 0.3 % (0.0-2.0); EOSINOPHIL % 0.5 % (0-5); HEMATOCRIT 31.2 % (37-47); MEAN CORPUSCULAR HGB CONC 32.2 G/DL (33.0-37.0); MEAN CORPUSCULAR VOLUME 93.2 FL (81.0-99.0); MEAN PLATELET VOLUME 7.7 FL (7.4-10.4); PLATELET COUNT 213 /CUMM (130-400); RBC DISTRIBUTION WIDTH 14.3 % (11.5-14.5); RED BLOOD CELL CT 3.35 /CUMM (4.20-5.40); WHITE BLOOD CELL COUNT 8.7 /CUMM (4.8-10.8)
== END 2017-08-19 09:27 | disposition home health service (06) | DRG 470 ==
LOC: SDA 00:28 → CANRESERV 09:37 → ENRESERV 09:37 → ENTRNSPT 10:46 → ENRESERV 10:47 → EDTRNSPT 10:59 → EDTRNSPTSTS 10:59 → 2NA 11:08 → CMPTRNSPT 11:25 → ENPENDDIS 08-19 08:43 → 2NA 08-19 09:27
PROVIDERS: Nurse Practitioner
PROC: 0SR904A Replacement of Right Hip Joint with Ceramic on Polyethylene Synthetic Substitute, Uncemented, Open Approach (ICD-10-PCS; principal; 2017-08-18)
DX: M16.11 Unilateral primary osteoarthritis, right hip (principal); K21.9 Gastro-esophageal reflux disease without esophagitis; I10 Essential (primary) hypertension; F32.9 Major depressive disorder, single episode, unspecified; Z87.891 Personal history of nicotine dependence; R25.1 Tremor, unspecified; D64.9 Anemia, unspecified
CPT/HCPCS: 2NAP; 36592; 73502-RT; 82436; 93005; 93010; 97116-GO; 97161-GP; 97530-GO; J0131; J0735; J2405; J2550; J3370; J3490; J7040; J7042